=== PATIENT | female | born 1990 | race Caucasian/White ===

== ENCOUNTER → 2022-01-11 08:19 | Outpatient (CLI) | payer BC, SELFPAY ==
--- NOTE | ~2022-01-11 | XR_ITS ---
XR_[id number]_CR DATE: 01/11/2022 08:59 INDICATION: Neck pain TECHNIQUE: AP, open-mouth, lateral views COMPARISON: None FINDINGS: C1 and C2 are normally aligned and the odontoid process is intact. No fracture or dislocati on or locked facet or prevertebral soft tissue swelling. Cervical interspaces are well preserved. IMPRESSION: Negative Reviewed, dictated and finalized at [facility]. Reviewed, dictated and finalized at [facility]. THERAPY SPECIALIST IMPRESSION: Negative
== END ==
DX: M54.2 Cervicalgia (principal)
CPT/HCPCS: 72040

== ENCOUNTER 2023-06-24 13:17 | Outpatient (CLI) | payer OTHER, SELFPAY ==
--- NOTE | ~2023-06-24 | US_ITS ---
EXAMINATION: US pelvic complete w TV DATE: 06/24/2023 13:49 INDICATION: Dysmenorrhea TECHNIQUE: Multiple transabdominal and endovaginal sonographic images of the pelvis were obtained. COMPARISON: CT abdomen and pelvis, same date. FINDINGS: Uterus: 8.7 x 4.3 x 4.7 cm. 3.6 cm intramural fibroid in the left anterior uterine body. Endometrial complex measures 8 mm. Right Ovary: Not visualized. No adnexal mass. Left Ovary: 3.4 x 1.4 x 2.1 cm. Vascular flow is present. No adnexal mass. There is no free fluid in the pelvis. IMPRESSION: 3.6 cm intramural fibroid. Right ovary not visualized during this examination. Otherwise normal pelvi c ultrasound findings. Reviewed, dictated and finalized at [facility]. IMPRESSION: 3.6 cm intramural fibroid. Right ovary not visualized during this examination. Otherwise normal pelvic ultrasound findings.
--- NOTE | ~2023-06-24 | CT_ITS ---
EXAMINATION: CT abdomen pelvis wo con DATE: 06/24/2023 13:59 INDICATION: Left flank pain, hematuria TECHNIQUE: Computed tomography (CT) of the abdomen and pelvis was performed without intravenous contr ast. The dose-length product (DLP) was 356.46 mGy-cm. Automated exposure control and iterative recons truction technique were employed. COMPARISON: None FINDINGS: The heart size is normal. A 2 mm nodule of the left lower lobe likely reflects old granulom atous disease. The liver, spleen, pancreas, gallbladder, and adrenal glands are normal. The kidneys a re unremarkable. No stones are identified in the kidneys, ureters, or bladder. No hydronephrosis or h ydroureter. No pathologically enlarged abdominal or pelvic lymph nodes are identified. No free intrap eritoneal gas or evidence of bowel obstruction. The appendix is normal. IMPRESSION: 1. No CT correlate for the patient's symptoms. Reviewed, dictated and finalized at location [facility].
== END 2023-06-24 13:18 ==
PROVIDERS: PCP Physician Assistant; Visit Provider Emergency Medicine
DX: R10.9 Unspecified abdominal pain (principal); N94.6 Dysmenorrhea, unspecified; D25.9 Leiomyoma of uterus, unspecified
CPT/HCPCS: 74176; 76830; 76856